=== PATIENT | male | born 1985 | race Caucasian/White ===

== ENCOUNTER 2024-06-09 16:05 | Emergency (ER) | payer MEDICAID, SELFPAY ==
[2024-06-09 16:07] VITALS: BP 133/84; PULSE 72; RESP 16; TEMP 37.1; O2SAT 98
--- NOTE | 2024-06-09 17:58 | ED.VIS.LOWEX ---
HPI History of Present Illness Chief Complaint: Lower Extremity Injury Narrative Narrative: 38-year-old male who denies significant past medical history presents with right thigh pain that he has had for approximately 1 year. He states that he was incarcerated in solitary confinement approximately a year ago. He was kicking the door with his right foot repeatedly in anger. He started feeling pain in his right distal thigh between the quadriceps muscles, more medially. He denies any chest pain or shortness of breath associated with this, no swelling of his right lower extremity. Over the past year he has had occasional right thigh pain that has become more constant. Additionally, he states over the last month he has felt vibrations in his right thigh. No real exacerbating or alleviating factors. He states to triage as well that he would like to be evaluated for this although it has been ongoing for a year and that he has not followed up with a primary care physician and would like to be referred to [facility]. [facility] Medical History no medical history Home Medications ?Medication ?Instructions ?Recorded ?Last Taken ?Type No Known/Unobtainable [No Known 11/26/14 Unknown History Home Medications] Allergy/AdvReac Type Severity Reaction Status Date / Time No Known Allergies Allergy Verified 06/09/24 16:06 Surgical History no surgical history Social History Smoking Status: Current every day smoker tobacco type: e-cigarettes ROS ROS ED ROS Narrative Review of systems positive for right thigh pain medially, no noted swelling or erythema by patient. He also feels vibrations and numbness and tingling between the muscles of his right medial thigh. No shortness of breath associated with this. He states he is concerned that he might of had a partial tear in the artery and that scar tissue is now blocking something off. EXAM Physical Exam Narrative Exam Narrative: Afebrile. Vital signs noted. Cardiovascular examination regular rate and rhythm. Lungs are clear to auscultation bilaterally. Abdomen is soft and nontender with positive bowel sounds. Inspection of the right medial thigh shows no erythema, no palpable cord, no ecchymosis. He has a palpable dorsalis pedis pulse on the right and appears neurovascularly intact distally. Is able to stand and transfer without difficulty. Const Vital Signs: 06/09/24 16:07 Temperature 98.8 F Temperature Source Temporal Pulse Rate 72 Respiratory Rate 16 Blood Pressure 133/84 H Blood Pressure Mean 100 Pulse Ox 98 Oxygen Delivery Method Room Air MDM MDM MDM Narrative Medical decision making narrative: Differential diagnosis includes but not limited to DVT versus muscle strain versus paresthesia secondary to diabetes. He may have also had chronic muscle strain versus tear or myofascial tear. I do have very low suspicion for DVT given that this has been ongoing for a year. I do not feel that he requires emergent ultrasound. I also do not feel that x-rays or laboratory work is indicated because I have low suspicion for fracture of his femur. I will check a random blood sugar to help rule out diabetes. I do feel that his medical screening examination is negative for any emergent process and he was referred to a primary care provider on-call. Random glucose obtained and is 94. At this point in time, he will be discharged to follow-up with a primary care provider. Disposition is discharged home in stable condition. History & Record Review Discussion w/independent historian: Patient Discharge Plan Triage Chief Complaint: Lower Extremity Injury ED Provider: Diaz Rodriguez Dx/Rx/DC Orders Clinical Impression: Right thigh pain, Encounter for medical screening examination Instructions: ED Screening Exam Medical Nonurgent, ED Myalgias, ED Pain, Acute, Uncertain Cause, ED Muscle Strain, Extremity Prescriptions: No Action No Known Home Medications Primary Care Provider: Care Physician,No Primary Referrals: Austin Copeland MD [Med Staff - Active Staff] - As soon as possible Care Physician,No Primary [Primary Care Provider] - Activity Restrictions/Additional Instructions: Follow-up with primary care provider soon as possible. Return to the emergency department with new or worsening symptoms. Print Language: Ukrainian Disposition Disposition: Home, Self Care
[2024-06-09 18:20] VITALS: BP 128/76; PULSE 81; RESP 14; TEMP 36.6; O2SAT 100
[2024-06-09 18:31] LABS: Bedside Glucose 93 mg/dL (74-106)
== END 2024-06-09 18:21 | disposition home or self-care (01) ==
PROVIDERS: Emergency Provider Emergency Medicine; Visit Provider Emergency Medicine
DX: M79.651 Pain in right thigh (principal); R42 Dizziness and giddiness; F17.290 Nicotine dependence, other tobacco product, uncomplicated
CPT/HCPCS: 82962; 99282

== ENCOUNTER 2025-02-17 19:00 | Emergency (ER) | payer OTHER, MEDICAID, SELFPAY ==
[2025-02-17 19:01] VITALS: BP 146/89; PULSE 94; RESP 16; TEMP 36.1; O2SAT 98; BMI 20.2
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
--- NOTE | 2025-02-17 19:19 | CT_ITS ---
PROCEDURE: BRAIN/HEAD WITHOUT CONTRAST 02/17/2025 REASON FOR EXAM: HEAD INJURY TECHNIQUE: Procedure Code: CTBR Modality: CT Procedure: BRAIN/HEAD WITHOUT CONTRAST Coronal and Sagittal reconstruction series were provided. One or more dose reduction techniques were used (e.g., Automated exposure control, adjustment of the mA and/or kV according to patient size, use of iterative reconstruction technique. COMPARISON: None available. FINDINGS: There is no extra-axial or intra-axial intracranial hemorrhage. No mass effect or midline shift is seen. The ventricles, sulci, and cisterns are normal in size and shape for the patient's age. There is normal gaming-white matter differentiation. The posterior fossa is grossly unremarkable. The skull is unremarkable. Visualized paranasal sinuses are clear. The mastoid air cells show normal translucency. CT/Brain/Head without Contrast IMPRESSION: No intracranial hemorrhage. No mass effect or midline shift. Reading [facility]
--- NOTE | 2025-02-17 19:22 | RAD_ITS ---
PROCEDURE: KNEE 4 OR MORE VIEWS 02/17/2025 REASON FOR EXAM: INJURY/PAIN TECHNIQUE: Procedure Code: RADKN Modality: DX Procedure: KNEE 4 OR MORE VIEWS Laterality: Left COMPARISON: None available. FINDINGS: Bones: No fracture. No suspicious bone lesion. Joints: Normal alignment. No significant degenerative changes. Effusion: No effusion. Soft tissues: Soft tissues are unremarkable. RAD/Knee 4 or More Views IMPRESSION: NO EFFUSION ACUTE FRACTURE OR DISLOCATION. Reading Location: [facility]
--- NOTE | 2025-02-17 20:00 | RAD_ITS ---
PROCEDURE: ELBOW MIN 3 VIEWS 02/17/2025 REASON FOR EXAM: INJURY/PAIN TECHNIQUE: Procedure Code: RADEL Modality: DX Procedure: ELBOW MIN 3 VIEWS Laterality: Left FINDINGS: No fracture or dislocation. Three views left elbow. RAD/Elbow min 3 Views IMPRESSION: Negative left elbow Reading [facility]
[2025-02-17 20:07] LABS: Anion Gap 13 (5-15); BUN 16 mg/dL (4-19); BUN/Creat Ratio 15.6 RATIO (10-20); Calcium,Total 8.9 mg/dL (7.6-11.0); Carbon Dioxide 20.6 mmol/L (21.0-32.0); Chloride 106 mmol/L (98-108); Estimated Creatinine Clearance 104.10 ml/min (50-250); Glucose 88 mg/dL (70-99); Potassium 4.0 mmol/L (3.3-5.1)
[2025-02-17 20:13] LABS: Hematocrit 39.7 % (40-54); Hemoglobin 13.5 g/dL (13.0-16.5); Immature Granulocytes Count 0.040 X10^3/uL (0.0-0.0); Mean Corp Hgb Conc 34.0 g/dL (32-36); Mean Corpuscular Volume 93.0 fL (80-94); Mean Platelet Vol. 9.1 fl (6.2-12.0); NRBC Flagged by Analyzer 0 % (0-5); Platelet Count 303 K/mm3 (150-450); RBC Distribution Width CV 14.1 % (11.6-14.6); RBC Distribution Width SD 48.4 fl (35.1-43.9); Red Blood Count 4.27 M/mm3 (4.6-6.2); White Blood Count 10.8 K/mm3 (4.4-11.0)
[2025-02-17 21:00] VITALS: BP 159/85; PULSE 94; RESP 16; O2SAT 96
--- NOTE | 2025-02-17 21:15 | ED.RN ---
This RN went into the patient's room to set up the suture procedure tray. The patient asked what the tray and bedside table was for and this RN educated the patient on the fact Dr. Angeles would like to suture his wound on his elbow. However, the patient states, well I am not actually going to get sutures, I don't want to be poked again. This RN educated the patient on the importance of getting sutures. However, the patient states, yeah that's okay, I am fine without it. notified.
[2025-02-17 22:41] VITALS: BP 130/61; PULSE 79; RESP 18; TEMP 36.6; O2SAT 98
== END 2025-02-17 22:43 | disposition home or self-care (01) ==
PROVIDERS: Emergency Provider Emergency Medicine; Visit Provider Emergency Medicine
DX: S51.012A Laceration without foreign body of left elbow, initial encounter (principal); S00.81XA Abrasion of other part of head, initial encounter; S80.02XA Contusion of left knee, initial encounter; Z23 Encounter for immunization; V19.9XXA Pedal cyclist (driver) (passenger) injured in unspecified traffic accident, initial encounter; Y93.55 Activity, bike riding; F17.290 Nicotine dependence, other tobacco product, uncomplicated
CPT/HCPCS: 70450; 73080; 73564; 80048; 85025; 90471; 90715; 99285; A4216

== ENCOUNTER 2025-03-02 15:48 | Emergency (ER) | payer OTHER, MEDICAID, SELFPAY ==
[2025-03-02 15:49] VITALS: BP 131/85; PULSE 100; RESP 16; TEMP 37; O2SAT 98; BMI 23.7
--- NOTE | 2025-03-02 15:54 | EDS_ITS ---
HPI History of Present Illness Chief Complaint: Eye Problem Detail of Chief Complaint: Tender area lateral lower eyelid Informant: patient Onset/Context/Timing Location: Right Eye Onset: Today Context: Sudden Onset Timing: Continuous Current Severity: Mild Maximum Severity: Mild Worsened by: Nothing Relieved by: Nothing Associated Symptoms Associated Symptoms - Eyes: Eyelid swelling; Negative for Burning, Crusting, Drainage, Foreign body sensation, Itching, Matting, Pain, Photophobia or Redness History of injury: No Visual correction: None Narrative Narrative: Patient is a 39-year-old male. He noted a bump lower eyelid. He googled his findings and was instructed to come to the emergency department. He denies double vision blurred vision loss of vision. Eyes matted of his eyelashes or discharge from his eye. 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 Alcohol abuse Home Medications Medication Instructions Recorded Last Taken Type No Known/Unobtainable [No Known 5 Unknown History Home Medications] Allergy/AdvReac Type Severity Reaction Status Date / Time No Known Allergies Allergy Verified 03/02/25 15:50 Surgical History Hx of hand surgery Social History Smoking Status: Current every day smoker tobacco type: e-cigarettes alcohol intake: current alcohol intake frequency: 0-2 drinks per day substance use type: marijuana ROS ROS ED Constitutional Constitutional ED: Denies chills, fever(s), subjective, sweats or weight loss Eyes Eyes: Denies blurry vision, change in vision or diplopia ENT ENT ED: Denies ear pain, rhinorrhea or sore throat Hematologic/Lymphatic Hematologic/Lymphatic: Denies easy bleeding or easy bruising EXAM Physical Exam Const Vital Signs: 03/02/25 15:49 Temperature 98.6 F Temperature Source Oral Pulse Rate 100 Respiratory Rate 16 Blood Pressure 131/85 H Blood Pressure Mean 100 Pulse Ox 98 Oxygen Delivery Method Room Air Positive well nourished and well developed General Appearance ED: well developed and NAD HEENT atraumatic Nose: external nose normal Eyes Eyes Narrative: Patient has a small hordeolum lower eyelid. Pupils equal round reactive. Extraocular muscle intact. Sclera is anicteric. Conjunctive is not injected. There is no preauricular lymphadenopathy. There is no pain with movement of the eye. Neck no lymphadenopathy, supple and no JVD Neuro oriented x3 and CN's II-XII intact bilaterally Sensorium / Orientation: alert Skin no wounds MDM MDM MDM Narrative Medical decision making narrative: Patient's findings consistent with hordeolum. Patient treatment is conservative. He will be discharged home with appropriate home-going instructions. Discharge Plan Triage Chief Complaint: Eye Problem ED Provider: Ye Presley Dx/Rx/DC Orders Clinical Impression: Hordeolum externum of right lower eyelid, Elevated blood pressure reading without diagnosis of hypertension Prescriptions: No Action No Known Home Medications Primary Care Provider: Care Physician,No Primary Referrals: Koby Coelho MD [Med Staff - [employer], Internal Medicine] - 3-5 Days if not improving Care Physician,No Primary [Primary Care Provider, Medical] Activity Restrictions/Additional Instructions: Apply warm compress to right eyelid 6-8 times a day Print Language: Lithuanian Disposition Disposition: Home, Self Care
[2025-03-02 16:21] VITALS: BP 128/77; PULSE 94; RESP 16; TEMP 36.8; O2SAT 98
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
== END 2025-03-02 16:23 | disposition home or self-care (01) ==
LOC: ED 16:06
PROVIDERS: Emergency Provider Emergency Medicine; Visit Provider Emergency Medicine
DX: H00.012 Hordeolum externum right lower eyelid (principal); R03.0 Elevated blood-pressure reading, without diagnosis of hypertension; F17.290 Nicotine dependence, other tobacco product, uncomplicated
CPT/HCPCS: 99282